=== PATIENT | female | born 1950 | race Hispanic/Latino ===

== ENCOUNTER 2023-07-08 12:49 | Emergency (ER) | payer OTHER ==
[~2023-07-08] VITALS: Ht 157.5 cm; Wt 87.1 kg
[~2023-07-08 12:49] MED LIST: LISI40TA9 PO; METF-444 PO; ROSU20TA73 PO
[2023-07-08 13:01] LABS: BASOPHILS # (AUTO) 0.01 K/uL (0.00-0.20); BASOPHILS % (AUTO) 0.2 % (0.0-5.0); EOSINOPHILS # (AUTO) 0.04 K/uL (0.00-0.70); EOSINOPHILS % (AUTO) 0.7 % (0.0-8.0); HEMATOCRIT 31.7 % (36-48); IMMATURE GRANULOCYTE ABSOLUTE 0.03 K/uL (0-1); LYMPHOCYTES # (AUTO) 0.4 K/uL (1.0-4.8); LYMPHOCYTES % (AUTO) 5.9 % (21.0-51.0); MEAN CORPUSCULAR HEMOGLOBIN 29.5 pg (27.0-33.0); MEAN CORPUSCULAR HGB CONC 32.8 g/dL (32.0-36.0); MEAN CORPUSCULAR VOLUME 89.8 fL (79-99); MONOCYTES % (AUTO) 0.7 % (3.0-13.0); NEUTROPHILS # (AUTO) 5.6 K/uL (1.8-7.7); PLATELET COUNT (AUTO) 317 K/uL (130-400); RED BLOOD CELL COUNT(AUTO) 3.53 MIL/uL (4.00-5.50); WHITE BLOOD COUNT (AUTO) 6.1 K/uL (4.8-10.8)
[2023-07-08 13:34] LABS: ALBUMIN 3.2 g/dL (3.5-5.0); BILIRUBIN,TOTAL 0.3 mg/dL (0.2-1.0); CREATININE 3.6 mg/dL (0.5-1.0); POTASSIUM 4.3 mmol/L (3.5-5.1); TOTAL PROTEIN, SERUM 8.6 g/dL (6.0-8.3)
[2023-07-08 14:59] VITALS: BP 159/66; PULSE 80; RESP 14; O2SAT 95
[2023-07-09] MEDS ORDERED: HYDR25TA67 PO (05:39)
[2023-07-09] MEDS ORDERED: ISOS30TA92 PO (05:39)
[2023-07-09] MEDS ORDERED: FURO20TA4 PO (05:39)
[2023-07-09] MEDS ORDERED: ATOR40TA69 PO (05:39)
[2023-07-09] MEDS ORDERED: CLOP75TA32 PO (05:39)
[2023-07-09] MEDS ORDERED: AEC81 PO (05:39)
[2023-07-09] MEDS ORDERED: METO-408 PO (05:39)
== END 2023-07-08 15:02 | disposition home or self-care (01) ==
LOC: EDH 12:49
DX: R55 Syncope and collapse (principal); R11.10 Vomiting, unspecified; I10 Essential (primary) hypertension; E11.9 Type 2 diabetes mellitus without complications; E78.00 Pure hypercholesterolemia, unspecified; Z79.84 Long term (current) use of oral hypoglycemic drugs; Z79.899 Other long term (current) drug therapy; Z98.890 Other specified postprocedural states
CPT/HCPCS: 36415; 71045; 80053; 83880; 84484; 85025; 93005

== ENCOUNTER 2024-06-18 07:06 | Day surgery (SDC) | payer OTHER ==
[2024-06-11 10:49] LABS: BASOPHILS # (AUTO) 0.02 K/uL (0.00-0.20); BASOPHILS % (AUTO) 0.3 % (0.0-5.0); EOSINOPHILS # (AUTO) 0.29 K/uL (0.00-0.70); EOSINOPHILS % (AUTO) 4.3 % (0.0-8.0); HEMATOCRIT 31.8 % (36-48); IMMATURE GRANULOCYTE ABSOLUTE 0.01 K/uL (0-1); LYMPHOCYTES # (AUTO) 1.4 K/uL (1.0-4.8); LYMPHOCYTES % (AUTO) 21.2 % (21.0-51.0); MEAN CORPUSCULAR HEMOGLOBIN 29.7 pg (27.0-33.0); MEAN CORPUSCULAR HGB CONC 32.1 g/dL (32.0-36.0); MEAN CORPUSCULAR VOLUME 92.7 fL (79-99); MONOCYTES # (AUTO) 0.5 K/uL (0.1-1.0); MONOCYTES % (AUTO) 7.6 % (3.0-13.0); NEUTROPHILS # (AUTO) 4.5 K/uL (1.8-7.7); NEUTROPHILS % (AUTO) 66.5 % (40.0-77.0); PLATELET COUNT (AUTO) 230 K/uL (130-400); RED BLOOD CELL COUNT(AUTO) 3.43 MIL/uL (4.00-5.50); RED CELL DISTRIBUTION WIDTH 12.2 % (11.0-15.5); WHITE BLOOD COUNT (AUTO) 6.7 K/uL (4.8-10.8)
[2024-06-11 10:58] LABS: INR 0.95 (0.85-1.15); PROTHROMBIN TIME 10.1 SEC (9.6-11.6)
[2024-06-11 10:59] LABS: PARTIAL THROMBOPLASTIN TIME 25.9 SEC (26.3-35.5)
[2024-06-11 11:04] LABS: BILIRUBIN,TOTAL 0.3 mg/dL (0.2-1.0); CREATININE 4.1 mg/dL (0.5-1.0); POTASSIUM 4.8 mmol/L (3.5-5.1); TOTAL PROTEIN, SERUM 8.2 g/dL (6.0-8.3)
[2024-06-11 11:17] VITALS: BP 180/82; PULSE 57; RESP 19; TEMP 97.2
--- NOTE | 2024-06-11 12:01 | EKG ---
[facility] Test Date: 2024-06-11 Test Time: 10:38:58 Pat Name: [address] Department: [facility] Room: Gender: F Auto Tech: [id number] : 1950 Requested By: MAISHA DONALD Order Number: [id number] Reading MD: Baldo Gerber Measurements Intervals [place] Rate: 57 P: 22 [place]: 180 QRS: -30 QRSD: 103 T: 40 QT: 480 QTc: 466 Interpretive Statements Sinus rhythm Left axis deviation Compared to ECG 07/08/2023 12:43:47 Left-axis deviation now present Myocardial infarct finding no longer present Electronically Signed On 06-13-2024 14:01:50 CDT by Baldo Gerber Please click the below link to view image of tracing.
[2024-06-18] VITALS (13 sets, daily range): BP systolic 101–159; BP diastolic 43–66; PULSE 54–61; RESP 16–20; TEMP 96.9–97.7
[~2024-06-18] VITALS: Ht 157.5 cm; Wt 88.2 kg
[~2024-06-18 07:06] MED LIST changes: +ACET-2247 PO; +AEC81 PO; +ATOR40TA69 PO; +CHOL200026 PO; +DOCU-116 PO; +FERR236T3 PO; +FURO20TA4 PO; +HYDR50TA37 PO; +ISOS30TA92 PO; -LISI40TA9 PO; +MAGN400T40 PO; -METF-444 PO; +METO-408 PO; -ROSU20TA73 PO
[2024-06-18] MEDS ORDERED: ceFAZolin SODIUM 2 GM VIAL ONE (08:23)
[2024-06-18] MEDS ORDERED: 0.9% NACL 500ML IV.SOLN 500 ML IV ONE (08:23)
[2024-06-18] MEDS ORDERED: 0.9% NACL 500ML IV.SOLN 500 ML IV SCH (08:30)
[2024-06-18] MEDS ORDERED: BUPIvacaine/PF 0.5% 30ML VIAL ONE ×2 (08:55→11:32)
[2024-06-18 09:41] LABS: CREATININE 4.1 mg/dL (0.5-1.0); POTASSIUM 4.1 mmol/L (3.5-5.1)
[2024-06-18] MEDS ORDERED: proPOFol 10 MG/ML 20ML VIAL IV ONE (10:32)
[2024-06-18] MEDS ORDERED: FENTanyl CITRate PF 50 MCG/1 ML 2ML VIAL ONE ×2 (10:32→12:34)
[2024-06-18] MEDS ORDERED: rocuRONium bROMide 10MG/1ML 5ML VL ONE (10:33)
[2024-06-18] MEDS ORDERED: MIDAZOLAM HCL 1 MG/ML 2ML VIAL ONE (10:33)
[2024-06-18] MEDS: ceFAZolin SODIUM 2 GM VIAL IVPB ONE (11:03)
[2024-06-18] MEDS ORDERED: ePHEDrine SULFate 50 MG/ML AMPULE ONE (11:16)
[2024-06-18] MEDS ORDERED: phenylEPHRINE HCL 10 MG/ML 1ML VIAL IV ONE (11:41)
[2024-06-18] MEDS ORDERED: GLYCOPYRROLATE 0.2 MG/ML 5 ML VIAL ONE (12:43)
[2024-06-18] MEDS ORDERED: NEOSTIGMINE METHYLSULFATE 1MG/ML IV ONE (12:43)
[2024-06-18] MEDS ORDERED: MEPERIDINE-PF 25 MG/ML SYG ONE (12:54)
[2024-06-18] MEDS: ondanSETRON 4MG INJ ONE (13:21)
[2024-06-18] MEDS: MEPERIDINE-PF 100 MG/ML SYG ONE (13:22)
--- NOTE | 2024-06-18 13:49 | OP ---
Operative Note: ATE OF PROCEDURE: 06/18/24 SURGEON: MAISHA DONALD MD SAUSAGE STUFFER: [] ANESTHESIA: General endotracheal ANESTHESIOLOGIST/ICE SCULPTOR: [] PREOPERATIVE DIAGNOSIS: Chronic kidney disease stage V POSTOPERATIVE DIAGNOSIS: Same PROCEDURE: Laparoscopic peritoneal dialysis catheter placement, open bilateral inguinal hernia repairs with mesh ESTIMATED BLOOD LOSS: Minimal INDICATIONS: Patient needing access for dialysis Devices left in place: 62 cm peritoneal dialysis catheter see implant report for details DESCRIPTION OF PROCEDURE: Patient is brought into the operating room placed on the operating table in a supine position. Once general endotracheal anesthesia is achieved patient's abdomen and groins are prepped and draped in sterile fashion. We then proceeded to create a 5 mm incision in the left upper quadrant at Kelley's point. Under direct visualization with Optiview proceeded to go through the abdominal wall and into the abdominal cavity. Obtain our pneumoperitoneum. We then evaluated the abdominal cavity. There was bilateral inguinal hernias at the groins, pictures in the chart. There was no adhesion at the abdominal wall. We then proceeded to place a 5 mm trocar at the left flank under the level of the umbilicus because of patient's prominent skin fold. And then using Bovie cautery took down the adhesions to the abdominal wall. I then proceeded to create a transverse incision over top of the rectus sheath at the level of the 5 mm trocar on the left side of the midline in the left lower quadrant. Dissected through the skin and subcutaneous tissue to expose the fascia. Created a transverse incision at the fascia. And then placed a pursestring suture with 0 Vicryl around my incision. I then proceeded to intro duce a 62cm catheter in through the rectus muscle and left the cuff within the muscle. Using an atraumatic grasper laparoscopically I position the tip of the catheter into the pelvis. We then proceeded to remove the lateral 5 mm trocar and tunneled our catheter from the medial incision to the this lateral incision in the subcutaneous tissue. We then proceeded to introduce 300cc of saline into the catheter and it drained easily after introduced. We released our pneumoperitoneum. Secured the catheter laterally with a 2-0 nylon at the skin. Close the skin skin incision in 2 layers medially using 3-0 Vicryl for the subcutaneous tissue 4-0 Monocryl in running fashion for the skin and Dermabond over top. The left upper quadrant incision was also closed with 4-0 Monocryl and Dermabond. The catheter was completely covered with a 4 x 4 and a Tegaderm. Patient tolerated the procedure well all counts were correct x2 at the end of the procedure The anterior iliac spine is identified and the symphysis pubis. on the RIGHT side We then created an oblique incision in the mid third between these 2 points. Dissected through the skin is a cutaneous tissue to expose Andria's fascia. Dissected through Andria's fascia to expose the fascia of the external oblique muscle. We then using a 10 blade divided the external oblique muscle and extended the incision in the direction of the fibers with Metzenbaums scissors. The nerve was identified and cut with a sharp scissors.[] We then proceeded to dissect the external oblique fascia off the contents of the inguinal canal, and expose the inguinal ligament. We identified the cord structures with blunt dissection we dissected around them circumferentially at the level of the pubic bone medially. We identified the hernia sac and from the cord structures. We reduce the hernia sac back into the internal ring and the abdominal cavity. There was a small size defect of at the internal ring. Floor of the inguinal canal was weak. Using a medium sized mesh. I then placed the patch over top secured it medially to the lacunar ligament with the 0 Prolene and ran it inferiorly securing it to the inguinal ligament. And superiorly with another 0 Prolene we ran it on the conjoined tendon and laterally joint both sutures to secure the patch. I did divide the round ligament. And also divided the ileal inguinal nerve sharply with Willow. External oblique fascia was closed with 3-0 Vicryl in running fashion. Andria's fascia was closed with 2-0 Vicryl in running fashion. Skin was closed with 4-0 Monocryl in running fashion. Dermabond was applied over top. At the end of the procedure I did an inguinal block with a 10 cc of Marcaine. The anterior iliac spine is identified and the symphysis pubis. on the Left side. We then created an oblique incision in the mid third between these 2 points. Dissected through the skin is a cutaneous tissue to expose Andria's fascia. Dissected through Andria's fascia to expose the fascia of the external oblique muscle. We then using a 10 blade divided the external oblique muscle and extended the incision in the direction of the fibers with Metzenbaums scissors. The nerve was identified and cut with a sharp scissors. We then proceeded to dissect the external oblique fascia off the contents of the inguinal canal, and expose the inguinal ligament. We identified the cord structures with blunt dissection we dissected around them circumferentially at the level of the pubic bone medially. We identified the hernia sac and from the cord structures. We reduce the hernia sac back into the internal ring and the abdominal cavity. There was a small size defect of at the internal ring. Floor of the inguinal canal was weak. Using a medium sized mesh. I then placed the patch over top secured it medially to the lacunar ligament with the 0 Prolene and ran it inferiorly securing it to the inguinal ligament. And superiorly with another 0 Prolene we ran it on the conjoined tendon and laterally joint both sutures to secure the patch. I did divide the round ligament. And also divided the ileal inguinal nerve sharply with Willow. External oblique fascia was closed with 3-0 Vicryl in running fashion. Andria's fascia was closed with 2-0 Vicryl in running fashion. Skin was closed with 4-0 Monocryl in running fashion. Dermabond was applied over top. At the end of the procedure I did an inguinal block with a 10 cc of Marcaine. All counts were correct x2 at the end of the procedure. Patient tolerated the procedure well. MAISHA DONALD MD Jun 18, 2024 13:49
== END 2024-06-18 15:00 ==
LOC: DAH 07:06
PROVIDERS: ATTEND Student in an Organized Health Care Education/Training Program
DX: I12.0 Hypertensive chronic kidney disease with stage 5 chronic kidney disease or end stage renal disease (principal); N18.5 Chronic kidney disease, stage 5; K40.20 Bilateral inguinal hernia, without obstruction or gangrene, not specified as recurrent; E11.22 Type 2 diabetes mellitus with diabetic chronic kidney disease; E78.00 Pure hypercholesterolemia, unspecified; K21.9 Gastro-esophageal reflux disease without esophagitis; E66.9 Obesity, unspecified; Z86.19 Personal history of other infectious and parasitic diseases; Z87.891 Personal history of nicotine dependence; Z68.36 Body mass index [BMI] 36.0-36.9, adult; Z79.899 Other long term (current) drug therapy; Z79.82 Long term (current) use of aspirin; Z99.2 Dependence on renal dialysis
CPT/HCPCS: 80053; 85025; 85610; 85730; 36415 ×2; 93005; 49324; 49505; 80048; 82948; 88304; A6260; C1750; A4663; A4649; J7040; J3010 ×2; J3490 ×3; J2250; J2704; J2405; J2710; J0665 ×3; J2175; J2371; J0690 ×2; A6204; C1769 ×2; C1781; A4215; A4222; A4221; A4216; A4223 ×2; A4600

== ENCOUNTER 2024-12-26 07:40 | Day surgery (SDC) | payer OTHER, MEDICARE ==
[~2024-12-26] VITALS: Ht 157.5 cm; Wt 83.9 kg
[2024-12-26] VITALS (16 sets, daily range): BP systolic 92–128; BP diastolic 30–53; PULSE 56–67; RESP 14–18; TEMP 96.9–97.7
[~2024-12-26 07:40] MED LIST changes: +AMLO-258 PO; -DOCU-116 PO; -FERR236T3 PO; +FERS325 PO; +FOLI0.8T22 PO; -FURO20TA4 PO; -HYDR50TA37 PO; +INSU100V37 SQ; +LACT-441 PO; +MINO2.5T3 PO; +SENN8.6T32 PO
[2024-12-26] MEDS: 0.9%NACL 1000ML 1,000 ML IV ONE (09:10)
[2024-12-26] MEDS ORDERED: DEXTROSE 50%-WATER 50 ML DISP.SYRIN IV ONE (10:48)
--- NOTE | 2024-12-26 10:51 | NUR ---
NOTIFIED ALEJANDRA Muir CRNA OF BLOOD GLUCOSE OF 64. RECEIVED ORDERS OF DO NOT GIVE D50, INSTEAD GIVE PT ORANGE JUICE. READ BACK ORDERS. ASLO NOTIFIED OF BP OF 96/42, RECEIVED ORDERS TO CONTINUE TO BOLUS 500 ML OF NS BAG. READ BACK ORDERS AND AGREED. Addendum: 12/26/24 at 1115 by BUDDY RAHMAN RN RN Amended: Links added.
--- NOTE | 2024-12-26 11:32 | NUR ---
NOTIFIED ALEJANDRA Muir CRNA OF BLOOD GLUCOSE OF 77 AND BP DIASTOLIC STILL IN 30s AFTER BOLUS OF NS WAS COMPLETED. ALEJANDRA Muir CRNA GAVE ORDERS OK TO TRANSFER TO DAY PATIENT DEPARTMENT. READ BACK ORDERS TO CONFIRM, ALEJANDRA Muir CRNA AGREED. Addendum: 12/26/24 at 1208 by BUDDY RAHMAN RN RN Amended: Links added.
== END 2024-12-26 11:54 | disposition home or self-care (01) ==
LOC: DAH 07:40
PROVIDERS: ATTEND Internal Medicine Gastroenterology
DX: R19.5 Other fecal abnormalities (principal); K63.89 Other specified diseases of intestine; K59.04 Chronic idiopathic constipation; K57.30 Diverticulosis of large intestine without perforation or abscess without bleeding; I12.0 Hypertensive chronic kidney disease with stage 5 chronic kidney disease or end stage renal disease; E11.22 Type 2 diabetes mellitus with diabetic chronic kidney disease; N18.6 End stage renal disease; E78.5 Hyperlipidemia, unspecified; Z99.2 Dependence on renal dialysis; Z79.899 Other long term (current) drug therapy
CPT/HCPCS: 82948 ×4; 45380; J7030 ×2; J2704; A4620; A4215; A4223; A7002; A4222; A4221; A4663; A4606; J7070; J3490